=== PATIENT | male | born 1950 | race Hispanic/Latino ===

== ENCOUNTER → 2019-10-06 | Outpatient (CLI) | payer OTHER | END | disposition home or self-care (01) | LOC: RAH 09:02 | PROVIDERS: ATTEND Internal Medicine Gastroenterology | DX: K70.30 Alcoholic cirrhosis of liver without ascites (principal); C22.0 Liver cell carcinoma ==

== ENCOUNTER 2020-06-20 17:25 | Emergency (ER) | payer OTHER ==
[2020-06-20 18:26] LABS: BASOPHILS % (AUTO) 1.6 % (0.0-5.0); EOSINOPHILS % (AUTO) 13.3 % (0.0-8.0); HEMATOCRIT 36.4 % (42-54); LYMPHOCYTES % (AUTO) 26.4 % (21.0-51.0); MEAN CORPUSCULAR HGB CONC 31.6 g/dL (32.0-36.0); MEAN CORPUSCULAR VOLUME 88.8 fL (79-99); MONOCYTES % (AUTO) 10.4 % (3.0-13.0); PLATELET COUNT (AUTO) 94 K/uL (130-400); RED CELL DISTRIBUTION WIDTH 17.6 % (11.0-15.5); WHITE BLOOD COUNT (AUTO) 6.9 K/uL (4.8-10.8)
[2020-06-20 18:38] LABS: CREATININE 1.5 mg/dL (0.5-1.5); POTASSIUM 4.2 mmol/L (3.5-5.1)
[2020-06-20 18:38] LABS: APPEARANCE,URINE Clear (CLEAR); BILIRUBIN,URINE Negative (NEGATIVE); COLOR,URINE Yellow (YELLOW); GLUCOSE, URINE (UA) 500 mg/dL (NEGATIVE); KETONES,URINE Negative (NEGATIVE); LEUKOCYTE ESTERASE ,URINE Negative (NEGATIVE); NITRATE,URINE Negative (NEGATIVE); OCCULT BLOOD,URINE Negative (NEGATIVE); PROTEIN,URINE Negative (NEGATIVE); UROBILINOGEN,URINE 0.2 mg/dL (0.2-1.0)
[2020-06-20 18:40] LABS: INR 1.11 (0.85-1.15)
[2020-06-20 18:42] LABS: ALBUMIN 2.4 g/dL (3.5-5.0); PARTIAL THROMBOPLASTIN TIME 33.9 SEC (26.3-35.5); TOTAL PROTEIN, SERUM 8.3 g/dL (6.0-8.3)
[2020-06-20 19:09] LABS: RBC,URINE 0-1 /HPF (0-1); WBC,URINE 0-1 /HPF (0-1)
[2020-06-20 19:10] LABS: BACTERIA,URINE Rare /HPF (None Seen); SQUAMOUS EPITHELIAL CELL,UR Rare /HPF (0-2)
[2020-06-20] MEDS ORDERED: FUROSEMIDE 40MG VIAL ONE (22:19)
== END 2020-06-20 23:07 | disposition home or self-care (01) ==
LOC: EDH 17:25
DX: R60.0 Localized edema (principal); K74.69 Other cirrhosis of liver; I12.9 Hypertensive chronic kidney disease with stage 1 through stage 4 chronic kidney disease, or unspecified chronic kidney disease; E11.22 Type 2 diabetes mellitus with diabetic chronic kidney disease; N18.9 Chronic kidney disease, unspecified; E78.00 Pure hypercholesterolemia, unspecified; K21.9 Gastro-esophageal reflux disease without esophagitis; J44.9 Chronic obstructive pulmonary disease, unspecified; Z88.8 Allergy status to other drugs, medicaments and biological substances; Z72.0 Tobacco use
CPT/HCPCS: 36415; 71045; 80053; 81001; 82550; 83880; 84484; 85025; 85610; 85730; 93005; 96374; 99285; J1940